=== PATIENT | male | born 1970 | race Caucasian/White ===

== ENCOUNTER 2017-10-30 14:00 | Inpatient (IN) | payer OTHER ==
[2017-10-30] MEDS: ASPIRIN 81 MG TAB PO (14:20)
[2017-10-30 14:21] LABS: ADD MAN DIFF? NO
[2017-10-30 14:24] LABS: BASOPHILS % 0.4 % (0.0-2.0); EOSINOPHILS # 0.1 10^3/ul (0.0-0.5); EOSINOPHILS % 1.7 % (0.0-7.0); HEMOGLOBIN 13.1 g/dl (14.0-18.0); LYMPHOCYTES # 2.4 10^3/ul (0.8-2.9); LYMPHOCYTES % 28.4 % (15.0-51.0); MEAN CORPUSCULAR HEMOGLOBIN 28.5 pg (29.0-33.0); MEAN CORPUSCULAR HGB CONC 32.8 g/dl (32.0-37.0); MEAN PLATELET VOLUME 10.4 fl (7.4-10.4); MONOCYTE # 0.7 10^3/ul (0.3-0.9); MONOCYTES % 8.4 % (0.0-11.0); NEUTROPHIL # 5.1 10^3/ul (1.6-7.5); NEUTROPHILS % 60.6 % (39.0-77.0); PLATELET COUNT 295 10^3/UL (140-415); RED CELL DISTRIBUTION WIDTH 13.4 % (11.5-14.5)
[2017-10-30 14:24] LABS: WHITE BLOOD COUNT 8.4 10^3/ul (4.8-10.8)
[2017-10-30 14:41] LABS: ANION GAP 17 (8-16); BLOOD UREA NITROGEN 12 mg/dl (7-20); CALCIUM 9.4 mg/dl (8.4-10.2); CARBON DIOXIDE 26 mmol/L (21-31); CHLORIDE 107 mmol/L (97-110); CREATININE 0.99 mg/dl (0.61-1.24); GLUCOSE 121 mg/dl (70-220); POTASSIUM 4.2 mmol/L (3.5-5.1); SODIUM 146 mmol/L (135-144)
[2017-10-30] MEDS: NITROGLYCERIN 2% 1 GM OINT PKT TD (14:47)
[2017-10-30 14:54] LABS: TROPONIN-I < 0.012 ng/ml (0.00-0.12)
[2017-10-30] MEDS ORDERED: ONDANSETRON 4 MG INJ IV (18:30)
[2017-10-30] MEDS ORDERED: NACL 0.9% 3 ML SYG IV (18:30)
[2017-10-30] MEDS ORDERED: LORAZEPAM 0.5 MG TAB PO (18:30)
[2017-10-30] MEDS ORDERED: morphine LIQ (10 MG/5 ML) CUP PO (18:30)
[2017-10-30] MEDS ORDERED: NITROGLYCERIN (SL) 0.4 MG TAB SL (18:30)
[2017-10-30] MEDS ORDERED: MAGNESIUM HYDROXIDE 30ML CUP PO (18:30)
[2017-10-30] MEDS ORDERED: DOCUSATE SODIUM 100 MG CAP PO (18:30)
[2017-10-30] MEDS ORDERED: morphine 2 MG INJ IV (18:30)
[2017-10-30] MEDS ORDERED: LORAZEPAM 2 MG INJ IV (18:30)
[2017-10-30] MEDS ORDERED: GLUCOSE GEL 15 GRAM TUBE PO ×2 (19:30)
[2017-10-30] MEDS ORDERED: GLUCOSE GEL 15 GRAM TUBE BUCCAL (19:30)
[2017-10-30] MEDS ORDERED: DEXTROSE 50% 50 ML SYRINGE IV ×2 (19:30)
[2017-10-30] MEDS ORDERED: GLUCAGON 1 MG INJ IM (19:30)
[2017-10-30 19:45] LABS: URIC ACID 6.4 mg/dl (3.1-7.9)
[2017-10-30 19:48] LABS: HEMOGLOBIN A1C 8.5 % (0-5.9)
[2017-10-30] MEDS: NICOTINE (21 MG/24 HR) PATCH TRANSDERM (20:57)
[2017-10-30] MEDS: METOPROLOL 25 MG TAB PO (20:58)
[2017-10-30] MEDS: INSULIN ASPART [NOVOLOG] 3 ML PEN SC (20:59)
[2017-10-30 21:50] LABS: CREATINE KINASE 35 IU/L (23-200)
[2017-10-30 22:03] LABS: CK INDEX 0.6
[2017-10-30 22:04] LABS: CK-MB 0.22 ng/ml (0.0-2.4); TROPONIN-I < 0.012 ng/ml (0.00-0.12)
[2017-10-30] MEDS ORDERED: hydrALAzine 20 MG INJ IV (22:30)
[2017-10-31] MEDS: ACCU-CHEK XX (01:52)
[2017-10-31 03:04] LABS: CREATINE KINASE 32 IU/L (23-200)
[2017-10-31 03:13] LABS: CK INDEX 0.9
[2017-10-31 03:20] LABS: CK-MB 0.28 ng/ml (0.0-2.4); TROPONIN-I < 0.012 ng/ml (0.00-0.12)
[2017-10-31] MEDS: PANTOPRAZOLE (EC) 40 MG TAB PO (05:16)
[2017-10-31 06:30] LABS: ADD MAN DIFF? NO
[2017-10-31 06:35] LABS: BASOPHILS % 0.6 % (0.0-2.0); EOSINOPHILS # 0.1 10^3/ul (0.0-0.5); HEMATOCRIT 39.7 % (42.0-52.0); HEMOGLOBIN 12.7 g/dl (14.0-18.0); LYMPHOCYTES # 2.3 10^3/ul (0.8-2.9); LYMPHOCYTES % 32.6 % (15.0-51.0); MEAN CORPUSCULAR HEMOGLOBIN 28.6 pg (29.0-33.0); MEAN CORPUSCULAR VOLUME 89.4 fl (82.0-101.0); MEAN PLATELET VOLUME 10.7 fl (7.4-10.4); MONOCYTE # 0.6 10^3/ul (0.3-0.9); MONOCYTES % 8.5 % (0.0-11.0); NEUTROPHIL # 3.9 10^3/ul (1.6-7.5); NEUTROPHILS % 55.7 % (39.0-77.0); PLATELET COUNT 264 10^3/UL (140-415); RED BLOOD COUNT 4.44 10^6/ul (4.70-6.10); RED CELL DISTRIBUTION WIDTH 13.1 % (11.5-14.5)
[2017-10-31 07:38] LABS: ALBUMIN 4.2 g/dl (3.3-4.9); ANION GAP 16 (8-16); BLOOD UREA NITROGEN 13 mg/dl (7-20); CARBON DIOXIDE 24 mmol/L (21-31); CHLORIDE 107 mmol/L (97-110); CREATININE 0.78 mg/dl (0.61-1.24); GLUCOSE 177 mg/dl (70-220); MAGNESIUM 1.7 mg/dl (1.7-2.5); PHOSPHORUS 4.4 mg/dl (2.5-4.9); POTASSIUM 4.2 mmol/L (3.5-5.1); SODIUM 143 mmol/L (135-144)
[2017-10-31] MEDS: INSULIN ASPART [NOVOLOG] 3 ML PEN SC ×4 (08:46→20:37)
[2017-10-31] MEDS: CLOPIDOGREL 75 MG TAB PO (08:47)
[2017-10-31] MEDS: ENOXAPARIN 40 MG/0.4 ML SYG SC (08:47)
[2017-10-31] MEDS: ISOSORBIDE MONONITRATE(SR)30 MG TAB PO (08:48)
[2017-10-31] MEDS: ASPIRIN (EC) 81 MG TAB PO (08:48)
[2017-10-31] MEDS: METOPROLOL 25 MG TAB PO ×2 (08:49→20:37)
[2017-10-31] MEDS: NICOTINE (21 MG/24 HR) PATCH TRANSDERM (08:50)
[2017-10-31] MEDS: CYCLOBENZAPRINE 10 MG TAB PO ×2 (13:45→20:37)
[2017-10-31] MEDS ORDERED: IBUPROFEN 400 MG TAB PO (14:30)
[2017-10-31] MEDS: IBUPROFEN 200 MG TAB PO (14:46)
[2017-11-01] MEDS: ACCU-CHEK XX (02:00)
[2017-11-01] MEDS: PANTOPRAZOLE (EC) 40 MG TAB PO (05:26)
[2017-11-01] MEDS: METOPROLOL 25 MG TAB PO ×2 (08:04→20:17)
[2017-11-01] MEDS: CLOPIDOGREL 75 MG TAB PO (08:06)
[2017-11-01] MEDS: ASPIRIN (EC) 81 MG TAB PO (08:06)
[2017-11-01] MEDS: CYCLOBENZAPRINE 10 MG TAB PO ×3 (08:06→20:17)
[2017-11-01] MEDS: ISOSORBIDE MONONITRATE(SR)30 MG TAB PO (08:07)
[2017-11-01] MEDS: INSULIN ASPART [NOVOLOG] 3 ML PEN SC ×4 (08:08→20:19)
[2017-11-01] MEDS: NICOTINE (21 MG/24 HR) PATCH TRANSDERM (08:10)
[2017-11-01] MEDS: ENOXAPARIN 40 MG/0.4 ML SYG SC (08:18)
[2017-11-01 08:31] LABS: ADD MAN DIFF? NO
[2017-11-01 08:34] LABS: WHITE BLOOD COUNT 6.1 10^3/ul (4.8-10.8)
[2017-11-01 08:34] LABS: BASOPHILS % 0.3 % (0.0-2.0); EOSINOPHILS # 0.1 10^3/ul (0.0-0.5); EOSINOPHILS % 1.5 % (0.0-7.0); HEMATOCRIT 39.4 % (42.0-52.0); LYMPHOCYTES # 1.8 10^3/ul (0.8-2.9); LYMPHOCYTES % 29.9 % (15.0-51.0); MEAN CORPUSCULAR HEMOGLOBIN 28.6 pg (29.0-33.0); MEAN CORPUSCULAR VOLUME 86.6 fl (82.0-101.0); MEAN PLATELET VOLUME 10.5 fl (7.4-10.4); MONOCYTE # 0.4 10^3/ul (0.3-0.9); MONOCYTES % 6.6 % (0.0-11.0); NEUTROPHIL # 3.7 10^3/ul (1.6-7.5); NEUTROPHILS % 61.2 % (39.0-77.0); PLATELET COUNT 279 10^3/UL (140-415); RED BLOOD COUNT 4.55 10^6/ul (4.70-6.10); RED CELL DISTRIBUTION WIDTH 13.2 % (11.5-14.5)
[2017-11-01 08:52] LABS: ALBUMIN 4.2 g/dl (3.3-4.9); ANION GAP 18 (8-16); BLOOD UREA NITROGEN 14 mg/dl (7-20); CALCIUM 9.6 mg/dl (8.4-10.2); CARBON DIOXIDE 25 mmol/L (21-31); CHLORIDE 104 mmol/L (97-110); CREATININE 0.82 mg/dl (0.61-1.24); GLUCOSE 179 mg/dl (70-220); MAGNESIUM 1.8 mg/dl (1.7-2.5); PHOSPHORUS 3.9 mg/dl (2.5-4.9); SODIUM 143 mmol/L (135-144)
[2017-11-01] MEDS: SALMETEROL/FLUTICASONE 250/50 INHA INH ×2 (13:32→21:00)
[2017-11-01] MEDS: TIOTROPIUM 18 MCG CAPSULE INHA DEV INH (13:32)
[2017-11-01] MEDS: ALBUTEROL/IPRATROPIUM (NEB) 3 ML AMP HHN (20:52)
[2017-11-02] MEDS: ALBUTEROL/IPRATROPIUM (NEB) 3 ML AMP HHN ×2 (02:00→08:18)
[2017-11-02] MEDS: ACCU-CHEK XX (02:00)
[2017-11-02] MEDS: PANTOPRAZOLE (EC) 40 MG TAB PO (05:14)
[2017-11-02 07:28] LABS: ADD MAN DIFF? NO
[2017-11-02 07:30] LABS: BASOPHILS % 0.5 % (0.0-2.0); EOSINOPHILS # 0.1 10^3/ul (0.0-0.5); EOSINOPHILS % 1.6 % (0.0-7.0); HEMATOCRIT 38.9 % (42.0-52.0); HEMOGLOBIN 12.7 g/dl (14.0-18.0); LYMPHOCYTES # 2.1 10^3/ul (0.8-2.9); LYMPHOCYTES % 32.3 % (15.0-51.0); MEAN CORPUSCULAR HEMOGLOBIN 28.6 pg (29.0-33.0); MEAN CORPUSCULAR HGB CONC 32.6 g/dl (32.0-37.0); MEAN CORPUSCULAR VOLUME 87.6 fl (82.0-101.0); MEAN PLATELET VOLUME 10.4 fl (7.4-10.4); MONOCYTE # 0.5 10^3/ul (0.3-0.9); MONOCYTES % 7.3 % (0.0-11.0); NEUTROPHIL # 3.7 10^3/ul (1.6-7.5); PLATELET COUNT 267 10^3/UL (140-415); RED BLOOD COUNT 4.44 10^6/ul (4.70-6.10); RED CELL DISTRIBUTION WIDTH 13.1 % (11.5-14.5)
[2017-11-02 07:30] LABS: WHITE BLOOD COUNT 6.3 10^3/ul (4.8-10.8)
[2017-11-02] MEDS: INSULIN ASPART [NOVOLOG] 3 ML PEN SC ×2 (08:32→12:08)
[2017-11-02] MEDS: CLOPIDOGREL 75 MG TAB PO (08:46)
[2017-11-02] MEDS: CYCLOBENZAPRINE 10 MG TAB PO ×2 (08:46→12:09)
[2017-11-02] MEDS: NICOTINE (21 MG/24 HR) PATCH TRANSDERM (08:46)
[2017-11-02] MEDS: ASPIRIN (EC) 81 MG TAB PO (08:47)
[2017-11-02] MEDS: METOPROLOL 25 MG TAB PO (08:48)
[2017-11-02] MEDS: TIOTROPIUM 18 MCG CAPSULE INHA DEV INH (08:48)
[2017-11-02] MEDS: ISOSORBIDE MONONITRATE(SR)30 MG TAB PO (08:48)
[2017-11-02] MEDS: ENOXAPARIN 40 MG/0.4 ML SYG SC (08:49)
[2017-11-02] MEDS: SALMETEROL/FLUTICASONE 250/50 INHA INH (08:55)
[2017-11-02 09:21] LABS: ALBUMIN 4.3 g/dl (3.3-4.9); ANION GAP 17 (8-16); BLOOD UREA NITROGEN 15 mg/dl (7-20); CALCIUM 9.2 mg/dl (8.4-10.2); CARBON DIOXIDE 26 mmol/L (21-31); CHLORIDE 104 mmol/L (97-110); CREATININE 0.88 mg/dl (0.61-1.24); GLUCOSE 142 mg/dl (70-220); PHOSPHORUS 4.6 mg/dl (2.5-4.9); POTASSIUM 3.9 mmol/L (3.5-5.1); SODIUM 143 mmol/L (135-144)
[2017-11-02] MEDS ORDERED: ALBUTEROL/IPRATROPIUM (NEB) 3 ML AMP HHN (14:00)
== END 2017-11-02 14:10 | disposition home or self-care (01) | DRG 313 ==
LOC: E/R 14:00 → MS4 18:20
DX: R07.89 Other chest pain (principal); I25.2 Old myocardial infarction; I10 Essential (primary) hypertension; I25.10 Atherosclerotic heart disease of native coronary artery without angina pectoris; E11.9 Type 2 diabetes mellitus without complications; K21.9 Gastro-esophageal reflux disease without esophagitis; F17.200 Nicotine dependence, unspecified, uncomplicated; J44.9 Chronic obstructive pulmonary disease, unspecified; R51 Headache; R42 Dizziness and giddiness; R20.0 Anesthesia of skin; Z95.5 Presence of coronary angioplasty implant and graft; Z79.82 Long term (current) use of aspirin
CPT/HCPCS: 70450; 70553; 71045; 72125; 72156; 80048; 80069; 82550; 82553; 82607; 82962; 83036; 83735; 84443; 84484; 84560; 85025; 93005; 93306; 94640; 94664; 99285-25; G0378

== ENCOUNTER 2018-06-06 23:41 | Observation (INO) | payer OTHER ==
[2018-06-07 00:18] LABS: ADD MAN DIFF? NO
[2018-06-07 00:24] LABS: BASOPHIL # 0.1 10^3/ul (0.0-0.1); BASOPHILS % 0.5 % (0.0-2.0); EOSINOPHILS # 0.3 10^3/ul (0.0-0.5); EOSINOPHILS % 2.5 % (0.0-7.0); HEMATOCRIT 39.9 % (42.0-52.0); LYMPHOCYTES # 3.2 10^3/ul (0.8-2.9); LYMPHOCYTES % 31.6 % (15.0-51.0); MEAN CORPUSCULAR HGB CONC 32.6 g/dl (32.0-37.0); MEAN CORPUSCULAR VOLUME 88.9 fl (82.0-101.0); MEAN PLATELET VOLUME 10.8 fl (7.4-10.4); MONOCYTE # 0.9 10^3/ul (0.3-0.9); MONOCYTES % 8.4 % (0.0-11.0); NEUTROPHIL # 5.8 10^3/ul (1.6-7.5); NEUTROPHILS % 56.3 % (39.0-77.0); PLATELET COUNT 267 10^3/UL (140-415); RED BLOOD COUNT 4.49 10^6/ul (4.70-6.10); RED CELL DISTRIBUTION WIDTH 12.7 % (11.5-14.5)
[2018-06-07 00:24] LABS: WHITE BLOOD COUNT 10.2 10^3/ul (4.8-10.8)
[2018-06-07 00:43] LABS: ALANINE AMINOTRANSFERASE 64 IU/L (13-69); ALBUMIN/GLOBULIN RATIO 1.14; ALKALINE PHOSPHATASE 99 IU/L (42-121); ANION GAP 17 (8-16); ASPARTATE AMINO TRANSFERASE 29 IU/L (15-46); BILIRUBIN,INDIRECT 0.3 mg/dl (0-1.1); BILIRUBIN,TOTAL 0.3 mg/dl (0.2-1.3); BLOOD UREA NITROGEN 17 mg/dl (7-20); CALCIUM 9.6 mg/dl (8.4-10.2); CARBON DIOXIDE 22 mmol/L (21-31); CHLORIDE 106 mmol/L (97-110); CREATININE 0.84 mg/dl (0.61-1.24); GLUCOSE 240 mg/dl (70-220); SODIUM 141 mmol/L (135-144); TOTAL PROTEIN 7.5 g/dl (6.1-8.1)
[2018-06-07 00:55] LABS: B-TYPE NATRIURETIC PEPTIDE 75 PG/ML (0-125); TROPONIN-I < 0.012 ng/ml (0.000-0.120)
[2018-06-07] MEDS: morphine 4 MG/ML VIAL IV (01:25)
[2018-06-07] MEDS: ASPIRIN 81 MG TAB PO ×2 (01:25→08:29)
[2018-06-07] MEDS: ONDANSETRON 4 MG INJ IV (01:25)
[2018-06-07] MEDS: SOD CHLORIDE 0.9% 500 ML IV (01:25)
[2018-06-07] MEDS ORDERED: ONDANSETRON 4 MG INJ IV (03:30)
[2018-06-07] MEDS ORDERED: DOCUSATE SODIUM 100 MG CAP PO (03:30)
[2018-06-07] MEDS ORDERED: BISACODYL (EC) 5 MG TAB PO (03:30)
[2018-06-07] MEDS ORDERED: NACL 0.9% 3 ML SYG IV (03:30)
[2018-06-07] MEDS ORDERED: ACETAMINOPHEN 325 MG TAB PO (03:30)
[2018-06-07] MEDS ORDERED: morphine 2 MG INJ IV (03:30)
[2018-06-07] MEDS: NITROGLYCERIN (SL) 0.4 MG TAB SL ×2 (03:45→03:53)
[2018-06-07] MEDS ORDERED: GLUCAGON 1 MG INJ IM (04:00)
[2018-06-07] MEDS ORDERED: DEXTROSE 50% 50 ML SYRINGE IV ×2 (04:00)
[2018-06-07] MEDS ORDERED: GLUCOSE GEL 15 GRAM TUBE PO ×2 (04:00)
[2018-06-07] MEDS ORDERED: GLUCOSE GEL 15 GRAM TUBE BUCCAL (04:00)
[2018-06-07] MEDS: KETOROLAC 30 MG INJ IV (04:24)
[2018-06-07] MEDS: DIAZEPAM 5 MG/ML SYG IV ×2 (04:30→06:02)
[2018-06-07] MEDS ORDERED: CYCLOBENZAPRINE 10 MG TAB PO ×3 (05:00→09:00)
[2018-06-07] MEDS: PANTOPRAZOLE (EC) 40 MG TAB PO (06:01)
[2018-06-07 07:10] LABS: CK-MB 0.49 ng/ml (0.0-2.4); TROPONIN-I < 0.012 ng/ml (0.000-0.120)
[2018-06-07 07:37] LABS: CK INDEX 1.4; CREATINE KINASE 35 IU/L (23-200)
[2018-06-07 07:42] LABS: CHOL/HDL RATIO 2.3 RATIO; CHOLESTEROL 120 mg/dl (100-200); HDL CHOLESTEROL 52 mg/dl (28-71); LDL CHOLESTEROL,CALCULATED 58 mg/dl; TRIGLYCERIDES 50 mg/dl (0-149)
[2018-06-07 07:42] LABS: MAGNESIUM 1.8 mg/dl (1.7-2.5)
[2018-06-07] MEDS: INSULIN ASPART [NOVOLOG] 3 ML PEN SC ×2 (07:59→12:22)
[2018-06-07] MEDS: FLUTICASONE/VILANTEROL 100-25 INH (08:29)
[2018-06-07] MEDS: TIOTROPIUM 18 MCG CAPSULE INHA DEV INH (08:29)
[2018-06-07] MEDS: ISOSORBIDE MONONITRATE(SR)30 MG TAB PO (08:30)
[2018-06-07] MEDS: METOPROLOL 25 MG TAB PO (08:33)
[2018-06-07] MEDS: CLOPIDOGREL 75 MG TAB PO (08:33)
[2018-06-07] MEDS: ZINC SULFATE 220 MG CAP PO (08:34)
[2018-06-07 08:50] LABS: HEMOGLOBIN A1C 8.2 % (0-5.9)
[2018-06-07 11:23] LABS: CREATINE KINASE 35 IU/L (23-200)
[2018-06-07 11:36] LABS: CK INDEX 1.2; CK-MB 0.43 ng/ml (0.0-2.4); TROPONIN-I < 0.012 ng/ml (0.000-0.120)
[2018-06-08] MEDS ORDERED: ACCU-CHEK XX (02:00)
== END 2018-06-07 13:10 | disposition home or self-care (01) ==
LOC: E/R 23:41 → TEL 06-07 02:36
DX: M25.512 Pain in left shoulder (principal); R07.89 Other chest pain; I10 Essential (primary) hypertension; E78.00 Pure hypercholesterolemia, unspecified; I25.10 Atherosclerotic heart disease of native coronary artery without angina pectoris; Z95.5 Presence of coronary angioplasty implant and graft; I25.2 Old myocardial infarction; E11.9 Type 2 diabetes mellitus without complications; E78.5 Hyperlipidemia, unspecified; Z87.891 Personal history of nicotine dependence; Z23 Encounter for immunization
CPT/HCPCS: 36415; 71045; 80053; 80061; 82550; 82553; 82962; 83036; 83735; 83880; 84443; 84484; 85025; 90686; 93005; 96374; 96375; 99285-25; G0378

== ENCOUNTER 2018-10-20 21:52 | Inpatient (IN) | payer OTHER ==
[2018-10-21 01:50] LABS: ADD MAN DIFF? NO
[2018-10-21 01:51] LABS: WHITE BLOOD COUNT 12.1 10^3/ul (4.8-10.8)
[2018-10-21 01:51] LABS: BASOPHILS % 0.2 % (0.0-2.0); EOSINOPHILS % 0.2 % (0.0-7.0); HEMATOCRIT 44.4 % (42.0-52.0); HEMOGLOBIN 14.5 g/dl (14.0-18.0); LYMPHOCYTES # 2.8 10^3/ul (0.8-2.9); LYMPHOCYTES % 23.4 % (15.0-51.0); MEAN CORPUSCULAR HEMOGLOBIN 27.8 pg (29.0-33.0); MEAN CORPUSCULAR HGB CONC 32.7 g/dl (32.0-37.0); MEAN CORPUSCULAR VOLUME 85.1 fl (82.0-101.0); MONOCYTES % 8.3 % (0.0-11.0); NEUTROPHIL # 8.2 10^3/ul (1.6-7.5); NEUTROPHILS % 67.4 % (39.0-77.0); PLATELET COUNT 275 10^3/UL (140-415); POSITIVE DIFF @See below; RED BLOOD COUNT 5.22 10^6/ul (4.70-6.10); RED CELL DISTRIBUTION WIDTH 12.2 % (11.5-14.5)
[2018-10-21 02:08] LABS: ALANINE AMINOTRANSFERASE 65 IU/L (13-69); ALBUMIN 4.6 g/dl (3.3-4.9); ALBUMIN/GLOBULIN RATIO 1.24; ALKALINE PHOSPHATASE 88 IU/L (42-121); ANION GAP 16 (5-13); ASPARTATE AMINO TRANSFERASE 33 IU/L (15-46); BILIRUBIN,INDIRECT 0.5 mg/dl (0-1.1); BILIRUBIN,TOTAL 0.5 mg/dl (0.2-1.3); BLOOD UREA NITROGEN 12 mg/dl (7-20); CALCIUM 9.5 mg/dl (8.4-10.2); CARBON DIOXIDE 24 mmol/L (21-31); CHLORIDE 97 mmol/L (97-110); CREATININE 0.75 mg/dl (0.61-1.24); Estimated GFR > 60 mL/min (>60); GLUCOSE 323 mg/dl (70-220); LIPASE 943 U/L (23-300); POTASSIUM 4.1 mmol/L (3.5-5.1); SODIUM 137 mmol/L (135-144); TOTAL PROTEIN 8.3 g/dl (6.1-8.1)
[2018-10-21 02:19] LABS: TROPONIN-I < 0.012 ng/ml (0.000-0.120)
[2018-10-21] MEDS: morphine 4 MG/ML VIAL IV (02:32)
[2018-10-21] MEDS: morphine 10 MG INJ IV (03:42)
[2018-10-21] MEDS ORDERED: NS + KCL 20 MEQ 1,000 ML IV (04:57)
[2018-10-21] MEDS ORDERED: morphine 2 MG INJ IV (05:00)
[2018-10-21] MEDS ORDERED: NACL 0.9% 3 ML SYG IV (05:00)
[2018-10-21] MEDS ORDERED: ONDANSETRON 4 MG INJ IV ×2 (05:00)
[2018-10-21] MEDS ORDERED: ACETAMINOPHEN 325 MG TAB PO (05:00)
[2018-10-21] MEDS: SOD CHLORIDE 0.9% 1,000 ML IV ×3 (05:10→11:43)
[2018-10-21] MEDS: INSULIN ASPART [NOVOLOG] 3 ML PEN SC ×2 (05:14→17:35)
[2018-10-21] MEDS ORDERED: GLUCAGON 1 MG INJ IM (05:30)
[2018-10-21] MEDS ORDERED: GLUCOSE GEL 15 GRAM TUBE BUCCAL (05:30)
[2018-10-21] MEDS ORDERED: DEXTROSE 50% 50 ML SYRINGE IV ×2 (05:30)
[2018-10-21] MEDS ORDERED: GLUCOSE GEL 15 GRAM TUBE PO ×2 (05:30)
[2018-10-21 05:42] LABS: CHOLESTEROL 156 mg/dl (100-200)
[2018-10-21 05:42] LABS: CHOL/HDL RATIO 3.5 RATIO; HDL CHOLESTEROL 44 mg/dl (28-71); LDL CHOLESTEROL,CALCULATED 92 mg/dl; TRIGLYCERIDES 98 mg/dl (0-149)
[2018-10-21] MEDS ORDERED: INSULIN ASPART [NOVOLOG] 3 ML PEN SC (06:00)
[2018-10-21] MEDS: Insulin NOVOLOG SS MILD Algorithm (NPO/TPN/ENTERAL FEEDS) SC ×3 (06:00→17:37)
[2018-10-21 06:32] LABS: HEMOGLOBIN A1C 11.3 % (0-5.9)
[2018-10-21] MEDS: PANTOPRAZOLE 40 MG INJ IV (09:39)
[2018-10-21] MEDS: ACCU-CHEK XX ×2 (13:27→20:05)
[2018-10-21] MEDS ORDERED: NITROGLYCERIN (SL) 0.4 MG TAB SL (14:30)
[2018-10-21] MEDS: POTASSIUM CHLORIDE 20 MEQ in LACTATED RINGER'S 1,000 ML IV ×2 (14:30→22:44)
[2018-10-21] MEDS: INSULIN GLARGINE [LANTus] (100 UNITS/ML) SYG SC (20:57)
[2018-10-21] MEDS: metFORMIN 500 MG TAB PO (21:00)
[2018-10-21] MEDS: ATORVASTATIN 80 MG TAB PO (21:00)
[2018-10-21] MEDS: METOPROLOL 25 MG TAB PO (21:03)
[2018-10-22] MEDS: Insulin NOVOLOG SS MILD Algorithm (NPO/TPN/ENTERAL FEEDS) SC ×4 (00:23→18:00)
[2018-10-22] MEDS: ACCU-CHEK XX ×4 (02:00→20:05)
[2018-10-22] MEDS ORDERED: ACCU-CHEK XX (02:00)
[2018-10-22] MEDS: POTASSIUM CHLORIDE 20 MEQ in LACTATED RINGER'S 1,000 ML IV ×4 (03:28→23:40)
[2018-10-22 05:04] LABS: ADD MAN DIFF? NO
[2018-10-22 05:19] LABS: WHITE BLOOD COUNT 8.4 10^3/ul (4.8-10.8)
[2018-10-22 05:20] LABS: BASOPHILS % 0.4 % (0.0-2.0); EOSINOPHILS # 0.1 10^3/ul (0.0-0.5); EOSINOPHILS % 1.5 % (0.0-7.0); HEMATOCRIT 41.1 % (42.0-52.0); HEMOGLOBIN 13.1 g/dl (14.0-18.0); LYMPHOCYTES % 23.9 % (15.0-51.0); MEAN CORPUSCULAR HEMOGLOBIN 27.8 pg (29.0-33.0); MEAN CORPUSCULAR HGB CONC 31.9 g/dl (32.0-37.0); MEAN CORPUSCULAR VOLUME 87.3 fl (82.0-101.0); MONOCYTE # 0.6 10^3/ul (0.3-0.9); MONOCYTES % 7.4 % (0.0-11.0); NEUTROPHIL # 5.6 10^3/ul (1.6-7.5); NEUTROPHILS % 66.3 % (39.0-77.0); PLATELET COUNT 221 10^3/UL (140-415); RED BLOOD COUNT 4.71 10^6/ul (4.70-6.10); RED CELL DISTRIBUTION WIDTH 12.1 % (11.5-14.5)
[2018-10-22] MEDS: PANTOPRAZOLE 40 MG INJ IV (05:49)
[2018-10-22 05:53] LABS: ALANINE AMINOTRANSFERASE 53 IU/L (13-69); ALBUMIN 3.8 g/dl (3.3-4.9); ALBUMIN/GLOBULIN RATIO 1.11; ALKALINE PHOSPHATASE 72 IU/L (42-121); AMYLASE 79 U/L (11-123); ANION GAP 14 (5-13); ASPARTATE AMINO TRANSFERASE 38 IU/L (15-46); BILIRUBIN,INDIRECT 0.3 mg/dl (0-1.1); BILIRUBIN,TOTAL 0.3 mg/dl (0.2-1.3); BLOOD UREA NITROGEN 10 mg/dl (7-20); CALCIUM 9.1 mg/dl (8.4-10.2); CARBON DIOXIDE 25 mmol/L (21-31); CHLORIDE 101 mmol/L (97-110); CREATININE 0.71 mg/dl (0.61-1.24); Estimated GFR > 60 mL/min (>60); GLUCOSE 189 mg/dl (70-220); LIPASE 652 U/L (23-300); POTASSIUM 4.1 mmol/L (3.5-5.1); SODIUM 140 mmol/L (135-144); TOTAL PROTEIN 7.2 g/dl (6.1-8.1)
[2018-10-22] MEDS: INSULIN ASPART [NOVOLOG] 3 ML PEN SC ×3 (07:35→17:35)
[2018-10-22] MEDS: metFORMIN 500 MG TAB PO ×2 (08:43→20:42)
[2018-10-22] MEDS: METOPROLOL 25 MG TAB PO ×2 (08:44→20:38)
[2018-10-22] MEDS: ASPIRIN (EC) 81 MG TAB PO (08:45)
[2018-10-22] MEDS: CLOPIDOGREL 75 MG TAB PO (08:45)
[2018-10-22] MEDS: ATORVASTATIN 40 MG TAB PO (20:37)
[2018-10-22] MEDS: INSULIN GLARGINE [LANTus] (100 UNITS/ML) SYG SC (20:41)
[2018-10-23] MEDS: POTASSIUM CHLORIDE 20 MEQ in LACTATED RINGER'S 1,000 ML IV ×3 (00:34→22:12)
[2018-10-23] MEDS: ACCU-CHEK XX ×4 (01:01→20:05)
[2018-10-23] MEDS: PANTOPRAZOLE 40 MG INJ IV (05:22)
[2018-10-23] MEDS: Insulin NOVOLOG SS MILD Algorithm (NPO/TPN/ENTERAL FEEDS) SC ×4 (05:29→18:00)
[2018-10-23 05:56] LABS: ADD MAN DIFF? NO
[2018-10-23 06:00] LABS: BASOPHILS % 0.4 % (0.0-2.0); EOSINOPHILS # 0.1 10^3/ul (0.0-0.5); EOSINOPHILS % 1.7 % (0.0-7.0); HEMATOCRIT 40.5 % (42.0-52.0); LYMPHOCYTES # 1.9 10^3/ul (0.8-2.9); MEAN CORPUSCULAR HEMOGLOBIN 27.8 pg (29.0-33.0); MEAN CORPUSCULAR HGB CONC 32.1 g/dl (32.0-37.0); MEAN CORPUSCULAR VOLUME 86.5 fl (82.0-101.0); MEAN PLATELET VOLUME 11.2 fl (7.4-10.4); MONOCYTE # 0.5 10^3/ul (0.3-0.9); MONOCYTES % 7.5 % (0.0-11.0); NEUTROPHIL # 4.6 10^3/ul (1.6-7.5); NEUTROPHILS % 64.1 % (39.0-77.0); PLATELET COUNT 222 10^3/UL (140-415); RED BLOOD COUNT 4.68 10^6/ul (4.70-6.10)
[2018-10-23 06:00] LABS: WHITE BLOOD COUNT 7.2 10^3/ul (4.8-10.8)
[2018-10-23 06:24] LABS: AMYLASE 53 U/L (11-123); ANION GAP 15 (5-13); BLOOD UREA NITROGEN 9 mg/dl (7-20); CALCIUM 9.2 mg/dl (8.4-10.2); CARBON DIOXIDE 24 mmol/L (21-31); CHLORIDE 100 mmol/L (97-110); Estimated GFR > 60 mL/min (>60); GLUCOSE 115 mg/dl (70-220); LIPASE 280 U/L (23-300); POTASSIUM 4.1 mmol/L (3.5-5.1); SODIUM 139 mmol/L (135-144)
[2018-10-23] MEDS: INSULIN ASPART [NOVOLOG] 3 ML PEN SC ×4 (07:35→21:00)
[2018-10-23] MEDS: ASPIRIN (EC) 81 MG TAB PO (08:15)
[2018-10-23] MEDS: metFORMIN 500 MG TAB PO ×2 (08:15→21:00)
[2018-10-23] MEDS: CLOPIDOGREL 75 MG TAB PO (08:15)
[2018-10-23] MEDS: BENAZEPRIL 10 MG TAB PO (08:16)
[2018-10-23] MEDS: METOPROLOL 25 MG TAB PO ×2 (08:21→21:00)
[2018-10-23] MEDS: INSULIN GLARGINE [LANTus] (100 UNITS/ML) SYG SC ×2 (20:00→22:12)
[2018-10-23] MEDS ORDERED: INSULIN ASPART [NOVOLOG] 3 ML PEN SC (21:00)
[2018-10-23] MEDS: ACETAMINOPHEN 325 MG TAB PO (21:10)
[2018-10-23] MEDS: ATORVASTATIN 40 MG TAB PO (21:11)
[2018-10-24] MEDS: ACCU-CHEK XX ×3 (02:00→14:00)
[2018-10-24] MEDS: PANTOPRAZOLE (EC) 40 MG TAB PO (06:26)
[2018-10-24 06:32] LABS: ALANINE AMINOTRANSFERASE 57 IU/L (13-69); ALBUMIN 3.7 g/dl (3.3-4.9); ALBUMIN/GLOBULIN RATIO 1.23; ALKALINE PHOSPHATASE 79 IU/L (42-121); ANION GAP 10 (5-13); ASPARTATE AMINO TRANSFERASE 51 IU/L (15-46); BILIRUBIN,INDIRECT 0.3 mg/dl (0-1.1); BILIRUBIN,TOTAL 0.3 mg/dl (0.2-1.3); BLOOD UREA NITROGEN 8 mg/dl (7-20); CALCIUM 9.3 mg/dl (8.4-10.2); CARBON DIOXIDE 26 mmol/L (21-31); CHLORIDE 103 mmol/L (97-110); CREATININE 0.77 mg/dl (0.61-1.24); Estimated GFR > 60 mL/min (>60); GLUCOSE 122 mg/dl (70-220); POTASSIUM 3.8 mmol/L (3.5-5.1); SODIUM 139 mmol/L (135-144); TOTAL PROTEIN 6.7 g/dl (6.1-8.1)
[2018-10-24] MEDS: INSULIN ASPART [NOVOLOG] 3 ML PEN SC ×6 (08:00→17:24)
[2018-10-24] MEDS: metFORMIN 500 MG TAB PO ×2 (08:16→08:30)
[2018-10-24] MEDS: CLOPIDOGREL 75 MG TAB PO (08:16)
[2018-10-24] MEDS: ASPIRIN (EC) 81 MG TAB PO (08:16)
[2018-10-24] MEDS: ENOXAPARIN 40 MG/0.4 ML SYG SC (08:18)
[2018-10-24] MEDS: METOPROLOL 25 MG TAB PO (08:22)
[2018-10-24] MEDS: BENAZEPRIL 10 MG TAB PO (08:22)
== END 2018-10-24 17:59 | disposition home or self-care (01) | DRG 440 ==
LOC: E/R 21:52 → 5EC 10-21 04:58 → PP2 10-21 04:58
DX: K85.90 Acute pancreatitis without necrosis or infection, unspecified (principal); I25.10 Atherosclerotic heart disease of native coronary artery without angina pectoris; Z95.5 Presence of coronary angioplasty implant and graft; E11.65 Type 2 diabetes mellitus with hyperglycemia; E78.5 Hyperlipidemia, unspecified; I10 Essential (primary) hypertension; K21.0 Gastro-esophageal reflux disease with esophagitis; Z90.49 Acquired absence of other specified parts of digestive tract; K76.0 Fatty (change of) liver, not elsewhere classified; E66.9 Obesity, unspecified; Z68.37 Body mass index [BMI] 37.0-37.9, adult; Z79.82 Long term (current) use of aspirin; Z79.4 Long term (current) use of insulin
CPT/HCPCS: 36415; 71045; 74176; 80048; 80053; 80061; 82150; 82962; 83036; 83690; 84484; 85025; 93005; 96374; 96376; 99285-25; G0378

== ENCOUNTER 2018-11-09 19:22 | Emergency (ER) | payer SELFPAY, OTHER | END 2018-11-09 19:42 | disposition left against medical advice (07) | LOC: E/R 19:22 | DX: Z53.21 Procedure and treatment not carried out due to patient leaving prior to being seen by health care provider (principal) ==

== ENCOUNTER 2019-03-17 01:55 | Emergency (ER) | payer OTHER ==
[2019-03-17 06:32] LABS: ADD MAN DIFF? NO
[2019-03-17] MEDS: SOD CHLORIDE 0.9% 1,000 ML IV (06:33)
[2019-03-17] MEDS: ONDANSETRON 4 MG INJ IV ×2 (06:33→10:24)
[2019-03-17] MEDS: morphine 4 MG/ML VIAL IV (06:33)
[2019-03-17 06:36] LABS: BASOPHILS % 0.2 % (0.0-2.0); EOSINOPHILS # 0.1 10^3/ul (0.0-0.5); EOSINOPHILS % 1.6 % (0.0-7.0); HEMATOCRIT 42.6 % (42.0-52.0); HEMOGLOBIN 13.2 g/dl (14.0-18.0); LYMPHOCYTES # 2.7 10^3/ul (0.8-2.9); MEAN CORPUSCULAR HEMOGLOBIN 27.8 pg (29.0-33.0); MEAN CORPUSCULAR VOLUME 89.9 fl (82.0-101.0); MEAN PLATELET VOLUME 10.8 fl (7.4-10.4); MONOCYTE # 0.6 10^3/ul (0.3-0.9); MONOCYTES % 7.3 % (0.0-11.0); NEUTROPHILS % 58.4 % (39.0-77.0); PLATELET COUNT 274 10^3/UL (140-415); RED BLOOD COUNT 4.74 10^6/ul (4.70-6.10)
[2019-03-17 06:36] LABS: WHITE BLOOD COUNT 8.5 10^3/ul (4.8-10.8)
[2019-03-17 06:54] LABS: ALANINE AMINOTRANSFERASE 42 IU/L (13-69); ALBUMIN 4.4 g/dl (3.3-4.9); ALBUMIN/GLOBULIN RATIO 1.25; ALKALINE PHOSPHATASE 77 IU/L (42-121); AMYLASE 69 U/L (11-123); ANION GAP 11 (5-13); ASPARTATE AMINO TRANSFERASE 25 IU/L (15-46); BILIRUBIN,INDIRECT 0.4 mg/dl (0-1.1); BILIRUBIN,TOTAL 0.4 mg/dl (0.2-1.3); BLOOD UREA NITROGEN 12 mg/dl (7-20); CALCIUM 9.4 mg/dl (8.4-10.2); CARBON DIOXIDE 25 mmol/L (21-31); CHLORIDE 105 mmol/L (97-110); CREATININE 0.77 mg/dl (0.61-1.24); Estimated GFR > 60 mL/min (>60); GLUCOSE 251 mg/dl (70-220); INR 0.98; LIPASE 197 U/L (23-300); POTASSIUM 4.2 mmol/L (3.5-5.1); PROTIME 13.1 Sec (11.9-14.9); SODIUM 141 mmol/L (135-144); TOTAL PROTEIN 7.9 g/dl (6.1-8.1)
[2019-03-17 06:55] LABS: PARTIAL THROMBOPLASTIN TIME 27.5 Sec (23.0-35.0)
[2019-03-17 07:06] LABS: TROPONIN-I < 0.012 ng/ml (0.000-0.120)
[2019-03-17] MEDS: IOHEXOL 300MG/ML 150 ML BTL (07:37)
[2019-03-17] MEDS: SOD CHLORIDE 0.9% 100 ML (07:37)
[2019-03-17] MEDS: HYDROmorphONE 1 MG/ML SYG IV (10:24)
== END 2019-03-17 11:08 | disposition home or self-care (01) ==
LOC: E/R 01:55
DX: K86.1 Other chronic pancreatitis (principal); I10 Essential (primary) hypertension; E11.65 Type 2 diabetes mellitus with hyperglycemia; Z79.4 Long term (current) use of insulin; Z79.82 Long term (current) use of aspirin; Z98.61 Coronary angioplasty status; Z87.891 Personal history of nicotine dependence
CPT/HCPCS: 74177; 80053; 82150; 83690; 84484; 85025; 85610; 85730; 93005; 96374; 96375; 96376; 99285-25